=== PATIENT | female | born 1955 | race Asian ===

== ENCOUNTER 2021-09-22 16:30 | Emergency (ER) | payer MEDICARE ==
[~2021-09-22] VITALS: Ht 152.4 cm; Wt 75.0 kg
[2021-09-22] MEDS ORDERED: METF-1211 PO (16:48)
[2021-09-22 16:49] VITALS: BP 117/68
[2021-09-22 17:01] LABS: GLUCOMETER DEV NAME(LOC) ERT.5; GLUCOSE,POINT OF CARE 159 MG/DL (70-110)
[2021-09-22] MEDS ORDERED: RALO60 PO (17:21)
[2021-09-22] MEDS ORDERED: EZET10TA57 PO (17:21)
[2021-09-22] MEDS ORDERED: ASPI-1450 PO (17:21)
[2021-09-22] MEDS ORDERED: LOSA-382 PO (17:21)
[2021-09-22] MEDS ORDERED: ATOR20TA86 PO (17:21)
[2021-09-22] MEDS ORDERED: NIAC500T7 PO (17:21)
[2021-09-22] MEDS ORDERED: FOLI-130 PO (17:21)
[2021-09-22] MEDS ORDERED: METO50 PO (17:21)
== END 2021-09-22 17:56 | disposition home or self-care (01) ==
LOC: EMS 16:32
DX: R45.851 Suicidal ideations (principal); E11.9 Type 2 diabetes mellitus without complications; Z79.891 Long term (current) use of opiate analgesic
CPT/HCPCS: 82962; 99285